=== PATIENT | female | born 1970 | race Caucasian/White ===

== ENCOUNTER 2017-03-20 12:58 | Emergency (ER) | payer BC ==
--- NOTE | 2017-03-20 13:26 | ER Document Report ---
ED Medical Screen (RME) - General Chief Complaint: General Weakness Stated Complaint: SHORT OF BREATH Time Seen by Provider: 03/20/17 13:23 Notes: 43-year-old female patient with past medical history of hypertension, hyperlipidemia, type 2 diabetes. She reports onset about 11 AM this morning of a chest discomfort which is "not a pain, like a scare". She reports breathing feels "like breathing through a pillow". There is a strong family history of coronary artery disease, hyperlipidemia, and diabetes. I have greeted and performed a rapid initial assessment of this patient. A comprehensive ED assessment and evaluation of the patient, analysis of test results and completion of the medical decision making process will be conducted by additional ED providers. TRAVEL OUTSIDE OF THE [place] IN LAST 30 DAYS: No - Related Data Allergies/Adverse Reactions: No Known Allergies Allergy (Unverified 03/20/17 13:06) Home Medications: Current Home Medications Metformin HCl [Glucophage] 1,000 mg PO TID 03/20/17 [History] Simvastatin 20 mg PO HSP PRN 03/20/17 [History] Past Medical History Renal/ Medical History: Denies: Hx Peritoneal Dialysis Physical Exam - Vital signs Vitals: Temp Pulse Resp BP Pulse Ox 98.6 F 113 H 22 H 155/88 H 97 03/20/17 13:03 03/20/17 13:03 03/20/17 13:03 03/20/17 13:03 03/20/17 13:03 Course - Vital Signs Vital signs: Temp Pulse Resp BP Pulse Ox 98.6 F 113 H 22 H 155/88 H 97 03/20/17 13:03 03/20/17 13:03 03/20/17 13:03 03/20/17 13:03 03/20/17 13:03
[2017-03-20 13:47] LABS: ABSOLUTE BASOPHILS # (AUTO) 0.1 10^3/uL (0.0-0.2); ABSOLUTE EOSINOPHILS # (AUTO) 0.2 10^3/uL (0.0-0.6); ABSOLUTE LYMPHOCYTES (AUTO) 2.5 10^3/uL (0.5-4.7); ABSOLUTE MONOCYTES (AUTO) 0.5 10^3/uL (0.1-1.4); ABSOLUTE NEUT (AUTO) 5.6 10^3/uL (1.7-8.2); BASOPHILS % (AUTO) 1.3 % (0-2); EOSINOPHILS % (AUTO) 1.9 % (0-6); HEMATOCRIT 39.3 % (36.0-47.0); HEMOGLOBIN 12.9 g/dL (12.0-15.5); HGB HCT DIFFERENCE -0.6; MEAN CORPUSCULAR HEMOGLOBIN 26.2 pg (27.0-33.4); MEAN CORPUSCULAR HGB CONC 32.9 g/dL (32.0-36.0); MEAN CORPUSCULAR VOLUME 80 fl (80-97); MONOCYTES % (AUTO) 5.6 % (3-13); RED BLOOD COUNT 4.94 10^6/uL (3.72-5.28); RED CELL DISTRIBUTION WIDTH 13.9 % (11.5-14.0); SEGMENTED NEUTROPHILS % (AUTO) 63.2 % (42-78); WHITE BLOOD COUNT 8.8 10^3/uL (4.0-10.5)
[2017-03-20 14:01] LABS: ALANINE AMINOTRANSFERASE 30 U/L (9-52); ALBUMIN 4.2 g/dL (3.5-5.0); ALKALINE PHOSPHATASE 69 U/L (38-126); ANION GAP 9 (5-19); ASPARTATE AMINO TRANSFERASE 18 U/L (14-36); BILIRUBIN,DIRECT 0.3 mg/dL (0.0-0.4); BILIRUBIN,TOTAL 0.3 mg/dL (0.2-1.3); BLOOD UREA NITROGEN 16 mg/dL (7-20); CALCIUM 9.8 mg/dL (8.4-10.2); CARBON DIOXIDE 27 mmol/L (22-30); CHLORIDE 104 mmol/L (98-107); CREATINE KINASE 45 U/L (30-135); CREATININE RESULT 0.71 mg/dL (0.52-1.25); GLUCOSE 186 mg/dL (75-110); SODIUM 140.1 mmol/L (137-145); TOTAL PROTEIN 7.3 g/dL (6.3-8.2)
--- NOTE | 2017-03-20 14:45 | ER Document Report ---
ED General - General TRAVEL OUTSIDE OF THE [place] IN LAST 30 DAYS: No - HPI Onset: This morning Associated symptoms: Other - see above <MELISSA FERNANDEZ - Last Filed: 03/20/17 14:47> <MARINO AUGUSTIN - Last Filed: 03/20/17 17:12> - General Chief Complaint: General Weakness Stated Complaint: SHORT OF BREATH Time Seen by Provider: 03/20/17 13:23 Notes: Patient is a 46 year old female who presents to the ED with complaints of feeling overwhelmed and having a "scared feeling" while getting ready today to run errands. Patient states that while at the store her symptoms began to improve however when she arrived at the grocery store she began having the symptoms again. She described it as a pressure on her chest and feeling like she was "breathing through a pilling". Patient states she felt like she was going to pass out. Patient currently feels improved. Patient has no history of DVT or PE. Patient denies having a stress test. PCP: Dr. Casie Nunes (MELISSA FERNANDEZ) - Related Data Allergies/Adverse Reactions: No Known Allergies Allergy (Unverified 03/20/17 13:06) Home Medications: Current Home Medications Lisinopril 10 mg PO HSP PRN 03/20/17 [History] Metformin HCl [Glucophage] 1,000 mg PO TID 03/20/17 [History] Simvastatin 20 mg PO HSP PRN 03/20/17 [History] Past Medical History - General Information source: Patient - Social History Smoking Status: Former Smoker Chew tobacco use (# tins/day): No Frequency of alcohol use: Occasional Drug Abuse: Methamphetamine - former addict Family History: CAD, DM, Hypertension Patient has suicidal ideation: No Patient has homicidal ideation: No - Past Medical History Cardiac Medical History: Reports: Hx Hypercholesterolemia, Hx Hypertension Endocrine Medical History: Reports: Hx Diabetes Mellitus Type 2 Renal/ Medical History: Denies: Hx Peritoneal Dialysis Past Surgical History: Reports: Hx Abdominal Surgery - hernia, Hx Cholecystectomy <MELISSA FERNANDEZ - Last Filed: 03/20/17 14:47> Review of Systems - Review of Systems Constitutional: No symptoms reported EENT: No symptoms reported Cardiovascular: See HPI, Chest pain - pressure, Lightheaded Respiratory: See HPI, Short of breath - "breathing through a pillow" Gastrointestinal: No symptoms reported Genitourinary: No symptoms reported Female Genitourinary: No symptoms reported Musculoskeletal: No symptoms reported Skin: No symptoms reported Hematologic/Lymphatic: No symptoms reported Neurological/Psychological: See HPI, Other - overwhelmed <MELISSA FERNANDEZ - Last Filed: 03/20/17 14:47> Physical Exam <MELISSA FERNANDEZ - Last Filed: 03/20/17 14:47> <MARINO AUGUSTIN - Last Filed: 03/20/17 17:12> - Vital signs Vitals: Temp Pulse Resp BP Pulse Ox 98.6 F 113 H 22 H 155/88 H 97 03/20/17 13:03 03/20/17 13:03 03/20/17 13:03 03/20/17 13:03 03/20/17 13:03 - Notes Notes: GENERAL: Alert, interacts well. No acute distress. HEAD: Normocephalic, atraumatic. EYES: Pupils equal, round, and reactive to light. Extraocular movements intact. ENT: Oral mucosa moist, tongue midline. NECK: Full range of motion. Supple. Trachea midline. LUNGS: Clear to auscultation bilaterally, no wheezes, rales, or rhonchi. No respiratory distress. HEART: Regular rate and rhythm. No murmurs, gallops, or rubs. ABDOMEN: Soft, non-tender. Non-distended. Bowel sounds present in all 4 quadrants. EXTREMITIES: Moves all 4 extremities spontaneously. No edema, radial and dorsalis pedis pulses 2/4 bilaterally. No cyanosis. NEUROLOGICAL: Alert and oriented x3. Normal speech. PSYCH: Normal affect, normal mood. SKIN: Warm, dry, normal turgor. No rashes or lesions noted (MELISSA FERNANDEZ) Course - Laboratory Result Diagrams: 03/20/17 13:30 03/20/17 13:30 <MELISSA FERNANDEZ - Last Filed: 03/20/17 14:47> - Laboratory Result Diagrams: 03/20/17 13:30 03/20/17 13:30 <MARINO AUGUSTIN - Last Filed: 03/20/17 17:12> - Re-evaluation Re-evalutation: 03/20/17 17:09 CBC unremarkable, d-dimer negative, CMP unremarkable, troponin undetectable 2, chest x-ray shows no acute process. Tachycardia on EKG resolves as patient is at rest. Low suspicion for PE, low suspicion for ischemic cardiac disease. All symptoms have resolved. Recommend for patient to follow-up with primary care physician as an outpatient for further workup of the intermittent tightness in her chest. (MARINO AUGUSTIN) - Vital Signs Vital signs: Temp Pulse Resp BP Pulse Ox 98.6 F 113 H 19 155/88 H 95 03/20/17 13:03 03/20/17 13:03 03/20/17 14:08 03/20/17 13:03 03/20/17 14:08 - Laboratory Laboratory results interpreted by me: 03/20/17 03/20/17 13:30 13:30 MCH 26.2 L Glucose 186 H - EKG Interpretation by Me Additional EKG results interpreted by me: 03/20/17 17:10 EKG is nonischemic, EKG shows sinus tachycardia at a rate of 108, normal axis, normal intervals, no ST segment elevations or depressions, no T-wave inversions. Per my interpretation. (MARINO AUGUSTIN) Discharge <MELISSA FERNANDEZ - Last Filed: 03/20/17 14:47> <MARINO AUGUSTIN - Last Filed: 03/20/17 17:12> - Discharge Clinical Impression: Chest tightness or pressure Hypertension Qualifiers: Hypertension type: essential hypertension Qualified Code(s): I10 - Essential ( primary) hypertension Diabetes mellitus Qualifiers: Diabetes mellitus type: type 2 Diabetes mellitus complication status: with hyperglycemia Diabetes mellitus halfway insulin use: without minister of religion use Qualified Code(s): E11.65 - Type 2 diabetes mellitus with hyperglycemia Condition: Stable Disposition: HOME, SELF-CARE Instructions: Chest Pain of Unclear Cause ([facility]) Referrals: MILLY PRECIADO PA [Primary Care Provider] - Follow up in 3-5 days Scribe Attestation: 03/20/17 17:11 I personally performed the services described in the documentation, reviewed and edited the documentation which was dictated to the scribe in my presence, and it accurately records my words and actions. (MARINO AUGUSTIN) Scribe Documentation - Scribe Written by Gladys:: gladys Ellis, 03/20/2017, 0110 acting as scribe for :: Mamta <MELISSA FERNANDEZ - Last Filed: 03/20/17 14:47>
--- NOTE | 2017-03-20 14:50 | RADIOLOGY REPORT (SQ) ---
EXAM DESCRIPTION: CHEST SINGLE VIEW COMPLETED DATE/TIME: 03/20/2017 2:31 pm REASON FOR STUDY: chest pressure, SOB COMPARISON: None. EXAM PARAMETERS: NUMBER OF VIEWS: One view. TECHNIQUE: Single frontal radiographic view of the chest acquired. RADIATION DOSE: NA LIMITATIONS: None. FINDINGS: LUNGS AND PLEURA: No opacities, masses or pneumothorax. No pleural effusion. MEDIASTINUM AND HILAR STRUCTURES: No masses. Contour normal. HEART AND VASCULAR STRUCTURES: Heart normal in size. Normal vasculature. BONES: No acute findings. HARDWARE: None in the chest. OTHER: No other significant finding. IMPRESSION: NO ACUTE RADIOGRAPHIC FINDING IN THE CHEST. TECHNICAL DOCUMENTATION: JOB ID: [id number]
[2017-03-20 17:39] VITALS: BP 127/70
--- NOTE | 2017-03-21 13:09 | EKG REPORT ---
SEVERITY:- OTHERWISE NORMAL ECG - SINUS TACHYCARDIA : Confirmed by: Nitesh Iyer 21-Mar-2017 13:08:04
== END 2017-03-20 17:39 | disposition home or self-care (01) ==
LOC: ER 12:58
DX: R07.89 Other chest pain (principal); R06.02 Shortness of breath; R42 Dizziness and giddiness; R00.0 Tachycardia, unspecified; I10 Essential (primary) hypertension; E11.65 Type 2 diabetes mellitus with hyperglycemia; R45.89 Other symptoms and signs involving emotional state; Z87.891 Personal history of nicotine dependence
CPT/HCPCS: 36415; 71010; 80053; 82550; 84484; 85025; 85379; 93005; 93010; 99285

== ENCOUNTER 2017-10-08 20:58 | Emergency (ER) | payer BC, OTHER ==
[2017-10-08 21:13] VITALS: BP 119/73
[2017-10-08 22:00] LABS: ABSOLUTE BASOPHILS # (AUTO) 0.1 10^3/uL (0.0-0.2); ABSOLUTE EOSINOPHILS # (AUTO) 0.3 10^3/uL (0.0-0.6); ABSOLUTE LYMPHOCYTES (AUTO) 3.8 10^3/uL (0.5-4.7); ABSOLUTE MONOCYTES (AUTO) 0.6 10^3/uL (0.1-1.4); ABSOLUTE NEUT (AUTO) 5.8 10^3/uL (1.7-8.2); BASOPHILS % (AUTO) 1.3 % (0-2); EOSINOPHILS % (AUTO) 2.5 % (0-6); HEMATOCRIT 40.4 % (36.0-47.0); HEMOGLOBIN 13.1 g/dL (12.0-15.5); LYMPHOCYTES % (AUTO) 35.7 % (13-45); MEAN CORPUSCULAR HEMOGLOBIN 25.3 pg (27.0-33.4); MEAN CORPUSCULAR HGB CONC 32.4 g/dL (32.0-36.0); MEAN CORPUSCULAR VOLUME 78 fl (80-97); MONOCYTES % (AUTO) 5.7 % (3-13); PLATELET COUNT 401 10^3/uL (150-450); RED BLOOD COUNT 5.18 10^6/uL (3.72-5.28); RED CELL DISTRIBUTION WIDTH 13.9 % (11.5-14.0); SEGMENTED NEUTROPHILS % (AUTO) 54.8 % (42-78); TOTAL CELLS COUNTED % (AUTO) 100 %; WHITE BLOOD COUNT 10.5 10^3/uL (4.0-10.5)
[2017-10-08 22:14] LABS: ALANINE AMINOTRANSFERASE 38 U/L (9-52); ALBUMIN 4.5 g/dL (3.5-5.0); ALKALINE PHOSPHATASE 72 U/L (38-126); ANION GAP 13 (5-19); ASPARTATE AMINO TRANSFERASE 20 U/L (14-36); BILIRUBIN,DIRECT 0.1 mg/dL (0.0-0.4); BILIRUBIN,TOTAL 0.2 mg/dL (0.2-1.3); BLOOD UREA NITROGEN 19 mg/dL (7-20); CARBON DIOXIDE 30 mmol/L (22-30); CHLORIDE 100 mmol/L (98-107); GLUCOSE 164 mg/dL (75-110); LIPASE 69.5 U/L (23-300); POTASSIUM 4.5 mmol/L (3.6-5.0); SODIUM 143.1 mmol/L (137-145); TOTAL PROTEIN 7.1 g/dL (6.3-8.2)
[2017-10-08] MEDS ORDERED: HYDROCODONE/ACETAMINOPHEN 5-325 MG TABLET PO ONE (22:21)
[2017-10-08] MEDS ORDERED: PROMETHAZINE HCL 25 MG TABLET PO ONE (22:21)
[2017-10-08] MEDS ORDERED: SUCRALFATE 1 GM TABLET PO ONE (22:22)
--- NOTE | 2017-10-08 22:23 | ER Document Report ---
ED GI/ - General Chief Complaint: Flank Pain Stated Complaint: FLANK PAIN Time Seen by Provider: 10/08/17 22:10 Notes: Patient is a 46-year-old female comes emergency department for chief complaint of pain in her upper abdomen, pain is been present for the past 2 3 days, intermittently, she states she feels worse when she eats and she gets nauseated although she has not vomited. She also reports of pain in her right lower back. She denies injury. She denies fever or chills, she has had normal bowel movements. She has had a cholecystectomy, ventral hernia repair, has type 2 diabetes, anxiety, hypertension. TRAVEL OUTSIDE OF THE [place] IN LAST 30 DAYS: No - Related Data Allergies/Adverse Reactions: No Known Allergies Allergy (Unverified 03/20/17 13:06) Past Medical History - General Information source: Patient - Social History Smoking Status: Never Smoker Chew tobacco use (# tins/day): No Frequency of alcohol use: None Drug Abuse: None Lives with: Family Family History: CAD, DM, Hypertension Patient has suicidal ideation: No Patient has homicidal ideation: No - Past Medical History Cardiac Medical History: Reports: Hx Hypercholesterolemia, Hx Hypertension Endocrine Medical History: Reports: Hx Diabetes Mellitus Type 2 Renal/ Medical History: Denies: Hx Peritoneal Dialysis Past Surgical History: Reports: Hx Abdominal Surgery - hernia, Hx Cholecystectomy Review of Systems - Review of Systems Constitutional: No symptoms reported EENT: No symptoms reported Cardiovascular: No symptoms reported Respiratory: No symptoms reported Gastrointestinal: See HPI Genitourinary: See HPI Female Genitourinary: No symptoms reported Musculoskeletal: See HPI Skin: No symptoms reported Hematologic/Lymphatic: No symptoms reported Neurological/Psychological: No symptoms reported Physical Exam - Vital signs Vitals: Temp Pulse Resp BP Pulse Ox 98.4 F 88 18 119/73 95 10/08/17 21:12 10/08/17 21:12 10/08/17 21:12 10/08/17 21:12 10/08/17 21:12 Interpretation: Normal - General General appearance: Appears well In distress: None - HEENT Head: Normocephalic, Atraumatic Eyes: Normal Pupils: PERRL - Respiratory Respiratory status: No respiratory distress Chest status: Nontender Breath sounds: Normal Chest palpation: Normal - Cardiovascular Rhythm: Regular Heart sounds: Normal auscultation Murmur: No - Abdominal Inspection: Normal Distension: No distension Bowel sounds: Normal Tenderness: Tender - Epigastric and left upper quadrant tenderness on exam which is mild, no guarding, no rigidity, no rebound tenderness, remaining abdomen is completely benign Organomegaly: No organomegaly - Back Back: Normal, Tender - Very mild right-sided para spinal tenderness over the lumbar musculature, no CVA tenderness, normal exam otherwise. No: CVA tenderness - Extremities General upper extremity: Normal inspection, Nontender, Normal color, Normal ROM , Normal temperature General lower extremity: Normal inspection, Nontender, Normal color, Normal ROM , Normal temperature, Normal weight bearing. No: Wicho's sign - Neurological Neuro grossly intact: Yes Cognition: Normal Orientation: AAOx4 Елена Coma Scale Eye Opening: Spontaneous [place] Coma Scale Verbal: Oriented [place] Coma Scale Motor: Obeys Commands Елена Coma Scale Total: 15 Speech: Normal Motor strength normal: LUE, RUE, LLE, RLE Sensory: Normal - Psychological Associated symptoms: Other - Patient became tearful when talking about her symptoms - Skin Skin Temperature: Warm Skin Moisture: Dry Skin Color: Normal Course - Re-evaluation Re-evalutation: Patient has already had a cholecystectomy. No distress on exam. Unremarkable vital signs. CBC unremarkable, chemistry generally unremarkable, lipase unremarkable. Kidney function is slightly worse than previously but no failure , urinalysis shows contamination and white blood cells, patient with no CVA tenderness, has mild lower back tenderness with palpation on exam, no dysuria or urinary symptoms, no lower abdominal pain, discussed with patient and urine was cultured. Discussed with patient the results, suspect she has gastritis based on her location and described symptoms, patient is feeling much better after her medications here in this department. Tolerating p.o. without any difficulty. Discussed treatment, follow-up, return precautions, patient states satisfaction and agreement. - Vital Signs Vital signs: Temp Pulse Resp BP Pulse Ox 98.4 F 88 18 119/73 95 10/08/17 21:12 10/08/17 21:12 10/08/17 21:12 10/08/17 21:12 10/08/17 21:12 - Laboratory Result Diagrams: 10/08/17 21:50 10/08/17 21:50 Laboratory results interpreted by me: 10/08/17 10/08/17 10/08/17 21:50 21:50 22:08 MCV 78 L MCH 25.3 L Creatinine 1.32 H Est GFR ( Amer) 53 L Est GFR (Non-Af Amer) 44 L Glucose 164 H Calcium 11.0 H Ur Leukocyte Esterase LARGE H Discharge - Discharge Clinical Impression: Upper abdominal pain, Flank pain Condition: Stable Disposition: HOME, SELF-CARE Additional Instructions: Your laboratory workup does not show any concerning abnormalities at this time in relation to her symptoms. I suspect you have inflammation of the upper part of your abdomen, probably gastritis, take Pepcid and Carafate as prescribed, take Phenergan if needed for nausea, avoid NSAIDs, caffeine, smoking, alcohol, spicy food. Apply heat to the lower back as this appears to be muscular. Follow-up with primary care. You may need additional tests if symptoms continue. Your kidney functioning should be rechecked as well to make sure this does not worsen. Return if you worsen including vomiting, vomiting blood, black stools, severe abdominal pain, fever, or any other concerning symptoms. Prescriptions: Famotidine [Pepcid 20 mg Tablet] 20 mg PO BID #20 tablet Promethazine HCl [Phenergan 25 mg Tablet] 1 - 2 tab PO Q6H PRN #20 tablet PRN Reason: Sucralfate [Carafate 1 gm Tablet] 1 gm PO QID #20 tablet Referrals: MILLY PRECIADO PA [Primary Care Provider] - Follow up in 1 week
[2017-10-08 22:30] LABS: AMORPHOUS SEDIMENT,URINE TRACE /HPF; APPEARANCE,URINE SLIGHTLY-CLOUDY; BILIRUBIN,URINE NEGATIVE (NEGATIVE); COLOR,URINE YELLOW; GLUCOSE, URINE NEGATIVE (NEGATIVE); KETONES,URINE NEGATIVE (NEGATIVE); LEUKOCYTE ESTERASE,URINE LARGE (NEGATIVE); NITRITE,URINE NEGATIVE (NEGATIVE); PROTEIN,URINE NEGATIVE (NEGATIVE); URINE SPECIFIC GRAVITY 1.021; UROBILINOGEN,URINE NEGATIVE mg/dL (<2.0)
== END 2017-10-08 23:35 | disposition home or self-care (01) ==
LOC: ER 20:58
DX: R10.10 Upper abdominal pain, unspecified (principal); R10.9 Unspecified abdominal pain; R11.0 Nausea; M54.5 Low back pain; I10 Essential (primary) hypertension; E11.9 Type 2 diabetes mellitus without complications; Z90.49 Acquired absence of other specified parts of digestive tract
CPT/HCPCS: 36415; 80053; 81001; 83690; 84703; 85025; 87086; 99284

== ENCOUNTER 2018-01-23 15:37 | Emergency (ER) | payer OTHER ==
--- NOTE | 2018-01-23 16:16 | ER Document Report ---
ED Medical Screen (RME) - General Chief Complaint: Chest Pain Stated Complaint: CHEST PAIN Time Seen by Provider: 01/23/18 16:09 Notes: RAPID MEDICAL EVALUATION DISCLOSURE I have seen this patient as part of a Rapid Medical Evaluation and, if applicable, placed any initially appropriate orders. The patient will be seen and fully evaluated, including a full history and physical exam, by a provider ( in Main ED or Fast Track) when a room becomes available. 47-year-old female here with complaints of chest pain and shortness of breath that started several hours ago. She does not note anything in particular makes the symptoms worse. Not worse with exertion or breathing or position change. She went to see her PCP and was told she had "cloudy lungs" and was sent straight here for further evaluation. She denies any prior history of CAD tobacco/cocaine abuse. Denies any prior history of PE DVT. EXAM CTAB Tachycardic TRAVEL OUTSIDE OF THE [place] IN LAST 30 DAYS: No - Related Data Allergies/Adverse Reactions: No Known Allergies Allergy (Verified 01/23/18 15:39) Past Medical History - Past Medical History Cardiac Medical History: Reports: Hx Hypercholesterolemia, Hx Hypertension Endocrine Medical History: Reports: Hx Diabetes Mellitus Type 2 Renal/ Medical History: Denies: Hx Peritoneal Dialysis Past Surgical History: Reports: Hx Abdominal Surgery - hernia, Hx Cholecystectomy Physical Exam - Vital signs Vitals: Temp Pulse Resp BP Pulse Ox 99.6 F 107 H 22 H 143/76 H 96 01/23/18 15:50 01/23/18 15:50 01/23/18 15:50 01/23/18 15:50 01/23/18 15:50 Course - Vital Signs Vital signs: Temp Pulse Resp BP Pulse Ox 99.6 F 107 H 22 H 143/76 H 96 01/23/18 15:50 01/23/18 15:50 01/23/18 15:50 01/23/18 15:50 01/23/18 15:50 Doctor's Discharge - Discharge Referrals: MILLY PRECIADO PA [Primary Care Provider] - Follow up as needed
[2018-01-23] MEDS ORDERED: ASPIRIN 81 MG TABLET, CHEWABLE PO ONE (16:17)
--- NOTE | 2018-01-23 16:42 | ER Document Report ---
ED Cardiac - General Chief Complaint: Chest Pain Stated Complaint: CHEST PAIN Time Seen by Provider: 01/23/18 16:09 Notes: The patient is a 47-year-old female, past medical history tension, anxiety, obesity, diabetes, hyperlipidemia, presents from her primary care physician's office, Dr. Gifford, after she started to have some chest pain, shortness of breath and back pain earlier today. She feels very anxious. She denies syncope , numbness, tingling, fevers, nausea, vomiting, abdominal pain, hemoptysis, OCP use or rash. TRAVEL OUTSIDE OF THE [place] IN LAST 30 DAYS: No - Related Data Allergies/Adverse Reactions: No Known Allergies Allergy (Verified 01/23/18 15:39) Past Medical History - General Information source: Patient - Social History Smoking Status: Never Smoker Chew tobacco use (# tins/day): No Frequency of alcohol use: None Drug Abuse: None Family History: CAD, DM, Hypertension Patient has suicidal ideation: No Patient has homicidal ideation: No - Past Medical History Cardiac Medical History: Reports: Hx Hypercholesterolemia, Hx Hypertension Endocrine Medical History: Reports: Hx Diabetes Mellitus Type 2 Renal/ Medical History: Denies: Hx Peritoneal Dialysis Past Surgical History: Reports: Hx Abdominal Surgery - hernia, Hx Cholecystectomy Review of Systems - Review of Systems Notes: REVIEW OF SYSTEMS: CONSTITUTIONAL: -fevers, -chills EENT: -eye pain, -difficulty swallowing, -nasal congestion CARDIOVASCULAR: +chest pain, -syncope. RESPIRATORY: -cough, +SOB GASTROINTESTINAL: -abdominal pain, -nausea, -vomiting, -diarrhea GENITOURINARY: -dysuria, -hematuria MUSCULOSKELETAL: +back pain, -neck pain SKIN: -rash or skin lesions. HEMATOLOGIC: -easy bruising or bleeding. LYMPHATIC: -swollen, enlarged glands. NEUROLOGICAL: -altered mental status or loss of consciousness, -headache, - neurologic symptoms PSYCHIATRIC: -anxiety, -depression. ALL OTHER SYSTEMS REVIEWED AND NEGATIVE. Physical Exam - Vital signs Vitals: Temp Pulse Resp BP Pulse Ox 99.6 F 107 H 22 H 143/76 H 96 01/23/18 15:50 01/23/18 15:50 01/23/18 15:50 01/23/18 15:50 01/23/18 15:50 - Notes Notes: PHYSICAL EXAMINATION: GENERAL: No acute distress, appears anxious. HEAD: Atraumatic, normocephalic. EYES: Pupils equal round and reactive to light, extraocular movements intact, sclera anicteric, conjunctiva are normal. ENT: nares patent, oropharynx clear without exudates. Moist mucous membranes. NECK: Normal range of motion, supple without lymphadenopathy LUNGS: Breath sounds clear to auscultation bilaterally and equal. No wheezes rales or rhonchi. HEART: Tachycardia, regular rhythm. ABDOMEN: Soft, nontender, normoactive bowel sounds. No guarding, no rebound. No masses appreciated. EXTREMITIES: Normal range of motion, no pitting or edema. No cyanosis. NEUROLOGICAL: Cranial nerves grossly intact. Normal speech, normal gait. Normal sensory and motor exams. SKIN: Warm, Dry, normal turgor, no rashes or lesions noted. Course - Re-evaluation Re-evalutation: Patient appears well and is in no acute distress. She is mildly tachycardic on arrival to the ER. CTA ordered due to moderate risk for PE. However CTA was negative for PE or aortic dissection. Patient thinks that this is all anxiety, but told her to follow with her primary care physician for further evaluation and treatment. - Vital Signs Vital signs: Temp Pulse Resp BP Pulse Ox 99.6 F 107 H 22 H 143/76 H 96 01/23/18 15:50 01/23/18 15:50 01/23/18 15:50 01/23/18 15:50 01/23/18 15:50 - Laboratory Result Diagrams: 01/23/18 16:31 01/23/18 16:31 Laboratory results interpreted by me: 01/23/18 01/23/18 16:31 16:31 MCV 79 L MCH 25.7 L Sodium 146.3 H Glucose 188 H Total Bilirubin < 0.1 L - Diagnostic Test Radiology reviewed: Image reviewed, Reports reviewed Radiology results interpreted by me: CXR: NAD CTA Chest: No emboli visualized in the main pulmonary arteries. No consolidation or pleural effusion. Fatty infiltration of the liver. 2.2 cm area of enhancement in the posterior right lobe of the liver, possible hemangioma, Limited exam. - EKG Interpretation by Me EKG shows normal: Sinus rhythm, [place], Intervals, QRS Complexes, ST-T Waves Rate: Tachycardia Discharge - Discharge Clinical Impression: Shortness of breath Chest pain Qualifiers: Chest pain type: unspecified Qualified Code(s): R07.9 - Chest pain, unspecified Condition: Stable Disposition: HOME, SELF-CARE Additional Instructions: CHEST PAIN OF UNCLEAR CAUSE: The exact cause of your chest pain isn't clear. Fortunately, there is no evidence of a dangerous medical condition. Further testing may be required to find the source of the pain. Most often, we find that this pain is coming from the chest wall -- the muscles or rib joints in the chest. But chest pain can come from the lung and lung lining, the esophagus, the heart valves or heart lining, and even the stomach or gallbladder. Rest. Eat lightly until the pain is gone. We may prescribe medicine for pain and inflammation. You should call the physician immediately if the pain radiates to the shoulder, jaw or arms; if you start to run a fever or develop a cough; or if you develop shortness of breath, or other new or alarming symptoms. NORMAL EXAM AND WORKUP: At this time, your examination and workup show no significant abnormality. No significant abnormal physical findings were noted. All laboratory, EKG, and imaging (x-ray, CT scans, ultrasound) studies that were ordered show no significant abnormality. Although your examination and all studies that were ordered showed no significant abnormal finding, there are no examinations and no studies that are 100% accurate. There is always the possibility that some abnormality could exist and not be detected with physical examination or within the limits and capabilities of laboratory and other studies. You should return or follow up as you were instructed on your visit today for further evaluation if your symptoms do not resolve. CHEST WALL PAIN: Your chest pain may be coming from the chest wall. This is often caused by straining the muscles or joints in the chest during physical activity, direct trauma, coughing, or vigorous vomiting. Persons with arthritis are especially prone to this type of pain, due to inflammation of the cartilage joints near the breast bone. Occasionally, no cause can be found. Rest from strenuous physical activity. This kind of chest pain is usually made worse by movement of the chest. Depending on the symptoms, we may prescribe medicine for pain, muscle relaxation, and antiinflammatory effects. If the pain is new, and seems to be due to muscle strain, cold packs can help. Otherwise, apply gentle warmth to the painful area for 15 minutes every hour or two. You should call contact the doctor immediately if things change. Further evaluation is needed if you develop a fever or cough, if the nature of the pain changes, or if you become short of breath. ANGINA EPISODE: Your physician has diagnosed the pain you experienced as an episode of angina. Angina occurs when a portion of the heart muscle temporarily lacks oxygen. It does not cause any permanent heart damage, but serves as a warning. Hospitalization is not necessary now. Evaluation of your cardiac condition , and medical therapy for angina will be necessary. It's important you be sure to keep all appointments and take medication exactly as prescribed. Angina is usually treated with a type of "nitrate" medication. This is available as ointment, pills, or sublingual (under the tongue) tablets. Depending on your clinical situation, other medications may be added to help control angina. These may include beta blockers or calcium blockers. If episodes of angina are occurring with increased frequency, or if chest pain lasts longer than 15 minutes or does not respond to nitroglycerin, you must seek emergency medical care immediately. ACID REFLUX DISEASE (GERD): Gastro-Esophageal Reflux Disease (GERD) is caused by stomach acid refluxing back up into the esophagus. The valve at the end of the esophagus may be weak. This is common in persons with a hiatal hernia. GERD symptoms can include indigestion, chest pain, heartburn, or food "sticking." Certain foods, alcohol, and aspirin can make GERD worse. Treatment depends on the severity. Usually, antacids or acid-suppressing medicines are used. When the esophagus is acutely inflamed, the physician will often prescribe membrane-protective drugs such as Carafate. Some patients benefit from medication such as Reglan that tightens the valve at the top of the stomach. Avoid those foods that bring on your symptoms. For many people, these foods are coffee, chocolate, onions, garlic, and carbonated drinks. Don't use alcohol, aspirin, caffeine, or tobacco. Don't eat late at night -- within 4 hours of bedtime. Don't over-eat. If necessary, elevate the head of your bed about 4 inches so that stomach acid will not roll up into your esophagus. Call the doctor if you develop severe chest pain, inability to swallow fluids, fever, or worsening symptoms. FOLLOW-UP CARE: If you have been referred to a physician for follow-up care, call the physician s office for an appointment as you were instructed or within the next two days. If you experience worsening or a significant change in your symptoms, notify the physician immediately or return to the Emergency Department at any time for re-evaluation. Forms: Elevated Blood Pressure Referrals: MILLY PRECIADO PA [Primary Care Provider] - Follow up as needed
[2018-01-23 17:02] LABS: ABSOLUTE EOSINOPHILS # (AUTO) 0.2 10^3/uL (0.0-0.6); ABSOLUTE LYMPHOCYTES (AUTO) 2.7 10^3/uL (0.5-4.7); ABSOLUTE MONOCYTES (AUTO) 0.5 10^3/uL (0.1-1.4); ABSOLUTE NEUT (AUTO) 5.9 10^3/uL (1.7-8.2); ALANINE AMINOTRANSFERASE 37 U/L (9-52); ALBUMIN 4.2 g/dL (3.5-5.0); ALKALINE PHOSPHATASE 69 U/L (38-126); ANION GAP 14 (5-19); ASPARTATE AMINO TRANSFERASE 24 U/L (14-36); BASOPHILS % (AUTO) 0.3 % (0-2); BLOOD UREA NITROGEN 14 mg/dL (7-20); CALCIUM 9.9 mg/dL (8.4-10.2); CARBON DIOXIDE 26 mmol/L (22-30); CHLORIDE 106 mmol/L (98-107); EOSINOPHILS % (AUTO) 2.1 % (0-6); GLUCOSE 188 mg/dL (75-110); HEMATOCRIT 40.8 % (36.0-47.0); HEMOGLOBIN 13.3 g/dL (12.0-15.5); LYMPHOCYTES % (AUTO) 28.8 % (13-45); MEAN CORPUSCULAR HEMOGLOBIN 25.7 pg (27.0-33.4); MEAN CORPUSCULAR HGB CONC 32.6 g/dL (32.0-36.0); MEAN CORPUSCULAR VOLUME 79 fl (80-97); MONOCYTES % (AUTO) 5.8 % (3-13); PLATELET COUNT 418 10^3/uL (150-450); POTASSIUM 4.6 mmol/L (3.6-5.0); RED BLOOD COUNT 5.18 10^6/uL (3.72-5.28); RED CELL DISTRIBUTION WIDTH 13.3 % (11.5-14.0); SODIUM 146.3 mmol/L (137-145); TOTAL CELLS COUNTED % (AUTO) 100 %; TOTAL PROTEIN 7.1 g/dL (6.3-8.2); WHITE BLOOD COUNT 9.3 10^3/uL (4.0-10.5)
[2018-01-23 17:03] LABS: BILIRUBIN,TOTAL < 0.1 mg/dL (0.2-1.3)
--- NOTE | 2018-01-23 17:18 | RADIOLOGY REPORT (SQ) ---
EXAM DESCRIPTION: CHEST 2 VIEWS COMPLETED DATE/TIME: 01/23/2018 4:47 pm REASON FOR STUDY: CP/SOB COMPARISON: 03/20/2017 EXAM PARAMETERS: NUMBER OF VIEWS: two views TECHNIQUE: Digital Frontal and Lateral radiographic views of the chest acquired. RADIATION DOSE: NA LIMITATIONS: none FINDINGS: LUNGS AND PLEURA: No opacities, masses or pneumothorax. No pleural effusion. MEDIASTINUM AND HILAR STRUCTURES: No masses or contour abnormalities. HEART AND VASCULAR STRUCTURES: Heart normal size. No evidence for failure. BONES: No acute findings. HARDWARE: None in the chest. OTHER: No other significant finding. IMPRESSION: NO ACUTE RADIOGRAPHIC FINDING IN THE CHEST. TECHNICAL DOCUMENTATION: JOB ID: [id number] [employer]- All Rights Reserved Reading location - IP/workstation name: [email or web address]
--- NOTE | 2018-01-23 18:17 | RADIOLOGY REPORT (SQ) ---
EXAM DESCRIPTION: CTA CHEST COMPLETED DATE/TIME: 01/23/2018 5:54 pm REASON FOR STUDY: tachycardia, CP, SOB, back pain COMPARISON: None. TECHNIQUE: CT scan of the chest performed using helical scanning technique with dynamic intravenous contrast injection. Images reviewed with lung, soft tissue and bone windows. Reconstructed coronal and sagittal MPR images reviewed. Additional 3 dimensional post-processing performed to develop Maximal Intensity Projection images (NM P). All images stored on PACS. All CT scanners at this facility use dose modulation, iterative reconstruction, and/or weight based d osing when appropriate to reduce radiation dose to as low as reasonably achievable (ALARA). [facility]: Dose Right [facility]: CareDose [facility]: Dose Right [facility]: Teradose 4D [facility]: [id number] CONTRAST TYPE AND DOSE: contrast/concentration: Isovue 370.00 mg/ml; Total Contrast Delivered: 86.0 ml; Total Saline Delivered: 70.0 ml Contrast bolus not optimized for the pulmonary arteries. RENAL FUNCTION: GFR > 60. RADIATION DOSE: CT Rad equipment meets quality standard of care and radiation dose reduction techniq ues were employed. CTDIvol: 33.1 - 38.6 mGy. DLP: 1433 mGy-cm. . LIMITATIONS: None. FINDINGS: LUNGS AND PLEURA: No masses, infiltrates, pneumothorax. No pleural effusions, calcificati ons. AORTA AND GREAT VESSELS: No aneurysm. Contrast bolus not optimized for the aorta. HEART: No pericardial effusion. No significant coronary artery calcifications. PULMONARY ARTERIES: No emboli visualized in the main pulmonary arteries. Contrast bolus limits evalu ation of the segmental branches. HILAR AND MEDIASTINAL STRUCTURES: No identified masses or abnormal nodes. HARDWARE: None in the chest. UPPER ABDOMEN: Fatty infiltration of the liver. 2.2 cm area of enhancement in the posterior right lo be of the liver, possible hemangioma, Limited exam. THYROID AND OTHER SOFT TISSUES: No masses. No adenopathy. BONES: No acute finding. 3D MIPS: Confirm above findings. OTHER: No other significant finding. IMPRESSION: No emboli visualized in the main pulmonary arteries. No consolidation or pleural effusi on. Fatty infiltration of the liver. 2.2 cm area of enhancement in the posterior right lobe of the liver , possible hemangioma, Limited exam. COMMENT: Quality ID # [id number]: Final reports with documentation of one or more dose reduction techniques (e.g., Automated exposure control, adjustment of the mA and/or kV according to patient size, use of iterative reconstruction technique) TECHNICAL DOCUMENTATION: JOB ID: [id number] [place]-[id number] 2010 [employer]- All Rights Reserved Reading location - IP/workstation name: [email or web address]
[2018-01-23 18:31] VITALS: BP 123/77
--- NOTE | 2018-01-23 20:23 | EKG REPORT ---
SEVERITY:- OTHERWISE NORMAL ECG - SINUS TACHYCARDIA : Confirmed by: Barron Byrne MD 23-Jan-2018 20:22:12
== END 2018-01-23 18:31 | disposition home or self-care (01) ==
LOC: ER 15:37
DX: R07.9 Chest pain, unspecified (principal); R00.0 Tachycardia, unspecified; R06.02 Shortness of breath; E66.9 Obesity, unspecified; E78.00 Pure hypercholesterolemia, unspecified; I10 Essential (primary) hypertension; E11.9 Type 2 diabetes mellitus without complications
CPT/HCPCS: 36415; 71046; 71275; 80053; 84484; 84703; 85025; 93005; 93010; 99285